=== PATIENT | female | born 1970 | race Caucasian/White ===

== ENCOUNTER 2020-11-11 10:56 | Inpatient (IN) ==
[2020-11-11] MEDS ORDERED: SODIUM CHLORIDE 0.9% 500 ML IV SCH (12:15)
--- NOTE | 2020-11-11 12:26 | Emergency Department Note ---
Impression & Plan Syncope, Anemia, Heart murmur, UTI (urinary tract infection) ED Provider Note NAME: MARIBEL KERN AGE: 50 SEX: F : 1970 ARRIVES VIA: Ambulance INFORMANT: [Patient][ems] ED PROVIDER(S): [Hamzah Perez MD] CHIEF COMPLAINT: Syncope HISTORY OF PRESENT ILLNESS: The patient is a 50-year-old female presents to the ER with a syncopal spell that occurred about an hour and a half ago. She was at work. She felt hot, the environment was hot. She began to sweat and get nauseated. She felt lightheaded. She had some bilateral lower chest pain that was mild in severity. No shortness of breath. She felt faint and apparently passed out while in a chair, she did not suffer any injuries. The patient states that she had a similar sensation 3 days ago at work although, she did not actually pass out. She ended up just going home and once home felt better. The patient states that she has been in baseline health except for these events at work. She did receive a Covid vaccine, her first dose, a week ago. She felt well though without any problems from the vaccination. In route, the patient was given IV Zofran 4 mg, she was given a 500 cc saline bolus. She feels back to her normal baseline self. The patient was recently at her doctor's office and told that she had a low iron level. REVIEW OF SYSTEMS: See HPI for pertinent positives and negatives. A total of ten systems were reviewed and were otherwise negative. PMHx/PSHx: See Below SOCIAL HISTORY: See Below. PHYSICAL EXAM: GENERAL: Patient is in no acute distress. HEENT: No acute trauma, normocephalic atraumatic, mucous membranes moist, no nasal congestion, no scleral icterus. NECK: No stridor, no adenopathy, no meningismus, trachea is midline. LUNGS: Clear to auscultation bilaterally, no wheeze, no rhonchi, breath sounds equal. HEART: 3/6 systolic murmur heard best at the left sternal border. ABDOMEN: Soft, nontender, bowel sounds positive, no hernias, no peritonitis. EXTREMITIES: No cyanosis or edema, full range of motion of all the joints without pain or difficulty, no signs for acute trauma. NEUROLOGIC: Oriented x 3, no acute motor or sensory deficits, no focal weakness. SKIN: No rash, no jaundice, no diaphoresis. Rectal: Brown stool, heme-negative. DIFFERENTIAL DIAGNOSIS: Infection, dehydration, metabolic abnormality, hypo/hyperglycemia, electrolyte disturbance, anemia, hypoxia, dysrhythmia, cardiac valve disorder, cardiac sources, intracerebral event, toxicologic issues, stroke, TIA, as well as other pathologies. EMERGENCY DEPARTMENT COURSE/PROCEDURES: ECG: Indication was syncope. The ECG shows a normal sinus rhythm with a somewhat prolonged QT. The rate is 96. There is some nonspecific ST change. There is no ST elevation, no PVCs. The QTc is 490. Continuous Cardiac Monitoring: An order was placed for continuous cardiac monitoring. The monitor shows a rate of 95 with normal sinus rhythm. Critical Care Note: I have personally spent 49 minutes of critical care time in the direct management of this patient. This includes bedside care, interpretation of diagnostic studies, and testing, discussion with consultants, patient, and family members, and other required patient management activities. This 49 minutes is in excess of all separately billable procedures. MEDICAL DECISION MAKING: There is a mild leukocytosis, this could be consistent with infection or just the stress of her current situation. There is a significant anemia with a hemoglobin of 6. I did perform a rectal exam, stool was brown and heme- negative. Platelet count was slightly elevated. Renal panel testing did not show renal failure. Magnesium was low at 1.7. The patient appeared to be in a euthyroid state. No worrisome liver enzyme elevation. Urinalysis was consistent with infection. Covid and influenza testing was negative. Chest film does not show pneumonia or CHF. ECG showed a sinus rhythm, no acute ischemia. Cardiac enzyme testing x1 was not consistent with acute cardiac injury. The patient was given IV saline, she received a 500 cc bolus. She was given IV magnesium and oral magnesium. She received IV ceftriaxone as empiric antibiotic coverage. She was ordered for 1 unit of blood to be transfused here in the ED. She did sign consent for the blood transfusion. The patient presents with syncope. She has a low magnesium, she is quite anemic, she has a UTI. I suspect all of these findings contributed to her syncopal event. I did contact cardiology because of the loud heart murmur. A cardiac echo was ordered. The patient is in need of a hospital stay. I spoke with case management, the on-call hospitalist was consulted. Past Med/Surg History Medical History Diabetes Iron deficiency anemia Myasthenia gravis sees Dr Cobos, [facility] [place] Nocturnal hypoxemia uses 3/4 L NC O2 at HS Surgical History (Updated 11/11/20 @ 15:05 by Enrique Davis) History of History of exploratory thoracotomy rib fracture, pneumothorax (2nd to a fall) History of lumbar surgery x 2 Family History (Updated 11/11/20 @ 15:07 by Enrique Davis) Father Parkinson disease Heart disease Diabetes Myocardial infarction Pacemaker Mother Diabetes Heart disease Denies family history of Gastric cancer Anemia Colorectal cancer Celiac disease Social History Smoking Status: Never smoker Hx Alcohol Use: Yes Alcohol Intake Frequency: Monthly or Less marital status: Current Living Situation: Family Current Living Situation Comment: lives near [employer] with ex- and son current occupational status: employed 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 How many Children do You have: 1 Feels Safe at Home: Yes Physical Activity Frequency: 1-2 Times per Week Allergies Allergies Allergy/AdvReac Type Severity Reaction Status Date / Time No Known Allergies Allergy Unverified 11/11/20 13:38 Home Meds Home Medications Medication Instructions Recorded Confirmed DIAMINOPYRIDINE (BULK) 10 mg PO TID #0 11/14/15 11/11/20 (DIAMINOPYRIDINE) ephedrine-guaifenesin 2 tab PO BID 11/11/20 11/11/20 ferrous sulfate 325 mg PO TID 11/11/20 11/11/20 glimepiride 4 mg PO QAM 11/11/20 11/11/20 metformin 500 mg PO BID 11/11/20 11/11/20 omeprazole 40 mg PO HS 11/11/20 11/11/20 prednisone 10 mg PO DIRECTED PRN 11/11/20 11/11/20 Results & Data (ED) Vital Signs Vital Signs - 24 hr 11/11/20 11:01 11/11/20 11:02 11/11/20 11:04 Temperature 36.9 C Temperature Source Oral Pulse Rate 95 H 94 H Pulse Rate from SpO2 Sensor 95 H Pulse Rhythm Regular Pulse Strength Normal Respiratory Rate 21 19 Respiratory Effort / Characteristics Non-Labored Respiratory Depth Normal Blood Pressure 128/69 128/69 Blood Pressure Mean 88 88 Blood Pressure Position Sitting Pulse Oximetry 91 91 Oxygen Delivery Method Room Air Room Air Oxygen Flow Rate Sepsis Recent Fever Within 48 Hours No Sepsis New/Unexplained Change in Mental Status No Sepsis Action Taken by Nursing No Action Required 11/11/20 11:08 11/11/20 11:10 11/11/20 11:11 Temperature Temperature Source Pulse Rate 96 H 96 H Pulse Rate from SpO2 Sensor 96 H 96 H Pulse Rhythm Pulse Strength Respiratory Rate 25 H 19 Respiratory Effort / Characteristics Respiratory Depth Blood Pressure Blood Pressure Mean Blood Pressure Position Pulse Oximetry 90 90 96 Oxygen Delivery Method Nasal Cannula Oxygen Flow Rate 2 Sepsis Recent Fever Within 48 Hours Sepsis New/Unexplained Change in Mental Status Sepsis Action Taken by Nursing 11/11/20 11:20 11/11/20 11:30 11/11/20 11:40 Temperature Temperature Source Pulse Rate 92 H 94 H 97 H Pulse Rate from SpO2 Sensor 93 H 94 H 97 H Pulse Rhythm Pulse Strength Respiratory Rate 18 17 17 Respiratory Effort / Characteristics Respiratory Depth Blood Pressure 119/66 Blood Pressure Mean 83 Blood Pressure Position Pulse Oximetry 100 100 100 Oxygen Delivery Method Oxygen Flow Rate Sepsis Recent Fever Within 48 Hours Sepsis New/Unexplained Change in Mental Status Sepsis Action Taken by Nursing 11/11/20 11:50 11/11/20 12:00 11/11/20 12:10 Temperature Temperature Source Pulse Rate 100 H 98 H 97 H Pulse Rate from SpO2 Sensor 97 H 98 H 99 H Pulse Rhythm Pulse Strength Respiratory Rate 13 21 18 Respiratory Effort / Characteristics Respiratory Depth Blood Pressure 113/73 Blood Pressure Mean 86 Blood Pressure Position Pulse Oximetry 100 100 100 Oxygen Delivery Method Oxygen Flow Rate Sepsis Recent Fever Within 48 Hours Sepsis New/Unexplained Change in Mental Status Sepsis Action Taken by Nursing 11/11/20 12:20 11/11/20 12:30 11/11/20 12:40 Temperature Temperature Source Pulse Rate 93 H 92 H 96 H Pulse Rate from SpO2 Sensor 94 H 93 H 96 H Pulse Rhythm Pulse Strength Respiratory Rate 21 20 16 Respiratory Effort / Characteristics Respiratory Depth Blood Pressure 121/79 Blood Pressure Mean 93 Blood Pressure Position Pulse Oximetry 100 100 100 Oxygen Delivery Method Oxygen Flow Rate Sepsis Recent Fever Within 48 Hours Sepsis New/Unexplained Change in Mental Status Sepsis Action Taken by Nursing 11/11/20 12:50 11/11/20 13:00 11/11/20 13:10 Temperature Temperature Source Pulse Rate 98 H 94 H 94 H Pulse Rate from SpO2 Sensor 97 H 94 H 94 H Pulse Rhythm Pulse Strength Respiratory Rate 23 24 17 Respiratory Effort / Characteristics Respiratory Depth Blood Pressure 124/68 Blood Pressure Mean 86 Blood Pressure Position Pulse Oximetry 100 100 100 Oxygen Delivery Method Oxygen Flow Rate Sepsis Recent Fever Within 48 Hours Sepsis New/Unexplained Change in Mental Status Sepsis Action Taken by Nursing 11/11/20 13:20 11/11/20 13:30 11/11/20 13:42 Temperature Temperature Source Pulse Rate 90 92 H 101 H Pulse Rate from SpO2 Sensor 91 H 92 H 101 H Pulse Rhythm Pulse Strength Respiratory Rate 19 20 12 Respiratory Effort / Characteristics Respiratory Depth Blood Pressure 137/82 Blood Pressure Mean 100 Blood Pressure Position Pulse Oximetry 100 100 97 Oxygen Delivery Method Oxygen Flow Rate Sepsis Recent Fever Within 48 Hours Sepsis New/Unexplained Change in Mental Status Sepsis Action Taken by Nursing 11/11/20 13:50 11/11/20 14:00 11/11/20 14:10 Temperature Temperature Source Pulse Rate 97 H 91 H 92 H Pulse Rate from SpO2 Sensor Pulse Rhythm Pulse Strength Respiratory Rate 23 19 22 Respiratory Effort / Characteristics Respiratory Depth Blood Pressure 158/70 H Blood Pressure Mean 99 Blood Pressure Position Pulse Oximetry Oxygen Delivery Method Oxygen Flow Rate Sepsis Recent Fever Within 48 Hours Sepsis New/Unexplained Change in Mental Status Sepsis Action Taken by Nursing 11/11/20 15:27 11/11/20 15:45 11/11/20 16:00 Temperature 36.6 C 36.7 C 36.7 C Temperature Source Oral Oral Oral Pulse Rate 89 87 86 Pulse Rate from SpO2 Sensor Pulse Rhythm Regular Regular Regular Pulse Strength Normal Normal Normal Respiratory Rate 21 20 15 Respiratory Effort / Characteristics Respiratory Depth Blood Pressure 130/98 129/89 128/80 Blood Pressure Mean 108 102 96 Blood Pressure Position Sitting Sitting Sitting Pulse Oximetry 100 100 100 Oxygen Delivery Method Oxygen Flow Rate 2 2 2 Sepsis Recent Fever Within 48 Hours Sepsis New/Unexplained Change in Mental Status Sepsis Action Taken by Nursing 11/11/20 16:16 11/11/20 16:30 11/11/20 17:30 Temperature 36.7 C 37 C 36.2 C L Temperature Source Oral Oral Oral Pulse Rate 86 90 82 Pulse Rate from SpO2 Sensor Pulse Rhythm Regular Regular Regular Pulse Strength Normal Normal Normal Respiratory Rate 15 20 16 Respiratory Effort / Characteristics Respiratory Depth Blood Pressure 129/74 128/85 139/89 Blood Pressure Mean 92 99 105 Blood Pressure Position Sitting Sitting Sitting Pulse Oximetry 100 100 100 Oxygen Delivery Method Oxygen Flow Rate 2 2 Sepsis Recent Fever Within 48 Hours Sepsis New/Unexplained Change in Mental Status Sepsis Action Taken by Alf Medications Current Medication List: was personally reviewed by me Laboratory Data Attestation: I reviewed the patient's lab results. Result diagrams: 11/11/20 11:09 11/11/20 11:09 Lab Results 11/11/20 11/11/20 11/11/20 Range/Units 11:09 11:09 11:09 WBC 12.12 H (4.8-10.8) K/uL RBC 4.03 L (4.2-5.4) M/uL Hgb 6.0 L* (12.0-16.0) g/dL Hct 24.1 L (37-47) % MCV 59.8 L (80-100) fL MCH 14.9 L (25-34) pg MCHC 24.9 L (32-36) g/dL Plt Count 403 H (130-400) K/uL Immature Gran % (Auto) 0.3 % Neut % (Auto) 72.7 % Lymph % (Auto) 18.5 % [place] % (Auto) 5.9 % Eos % (Auto) 2.2 % Baso % (Auto) 0.4 % Neut # (Auto) 8.81 H (1.4-6.5) K/uL Lymph # (Auto) 2.24 (1.2-3.4) K/uL [place] # (Auto) 0.71 H (0.11-0.59) K/uL Eos # (Auto) 0.27 (0-0.5) K/uL Baso # (Auto) 0.05 (0-0.2) K/uL Immature Gran # (Auto) 0.04 H (0.00-0.02) K/uL Microcytosis Present Ovalocytes 1+ Sodium 137 (136-145) mmol/L Potassium 3.6 (3.5-5.1) mmol/L Chloride 104 (98-107) mmol/L Carbon Dioxide 29 (21-32) mmol/L Anion Gap 4.0 (3-11) BUN 21 H (7-18) mg/dl Creatinine 1.19 (0.6-1.2) mg/dl Est Cr Clr Drug Dosing 74.0 ml/min Est GFR ( Amer) 61.6 Est GFR (Non-Af Amer) 53.2 BUN/Creatinine Ratio 17.7 (10-20) Glucose 246 H (70-99) mg/dl POC Glucose (70-99) mg/dl Calcium 8.7 (8.5-10.1) mg/dl Magnesium 1.7 L (1.8-2.4) mg/dl Iron 30 L (35-150) mcg/dl Transferrin 393 H (200-360) mg/dl Transferrin % Sat 5 L (15-50) % Ferritin 1.2 L (8-388) ng/ml Total Bilirubin 0.3 (0.2-1) mg/dl AST 10 L (15-37) U/L ALT 14 (12-78) U/L Alkaline Phosphatase 91 (45-117) U/L Troponin I < 0.015 (0-0.045) ng/ml Total Protein 8.7 H (6.4-8.2) gm/dl Albumin 3.3 L (3.4-5.0) gm/dl Globulin 5.4 H (2.5-4.0) gm/dl Albumin/Globulin Ratio 0.6 L (0.9-2) TSH 4.230 (0.300-4.500) uIu/ml Urine Color Urine Appearance (Clear) Urine pH (4.5-7.5) Ur Specific [place] (1.000-1.030) Urine Protein (Negative) Urine Glucose (UA) (Negative) Urine Ketones (Negative) Urine Blood (Negative) Urine Nitrite (Negative) Urine Bilirubin (Negative) Urine Urobilinogen (Negative) Ur Leukocyte Esterase (Negative) Urine WBC (Auto) (0-5) /hpf Urine RBC (Auto) (0-4) /hpf U Hyaline Cast (Auto) (0-5) /lpf U Epithel Cells (Auto) (0-5) /lpf Urine Bacteria (Auto) (Negative) COVID-19 Eval Order SARS-CoV-2 (PCR) (Negative) Influenza Type A (PCR) (Neg) Influenza Type B (PCR) (Neg) RSV (RT-PCR) (Neg) Blood Type Blood Type Recheck Antibody Screen Crossmatch 04/08/21 04/08/21 04/08/21 Range/Units 11:11 13:35 13:48 WBC (4.8-10.8) K/uL RBC (4.2-5.4) M/uL Hgb (12.0-16.0) g/dL Hct (37-47) % MCV (80-100) fL MCH (25-34) pg MCHC (32-36) g/dL Plt Count (130-400) K/uL Immature Gran % (Auto) % Neut % (Auto) % Lymph % (Auto) % [place] % (Auto) % Eos % (Auto) % Baso % (Auto) % Neut # (Auto) (1.4-6.5) K/uL Lymph # (Auto) (1.2-3.4) K/uL [place] # (Auto) (0.11-0.59) K/uL Eos # (Auto) (0-0.5) K/uL Baso # (Auto) (0-0.2) K/uL Immature Gran # (Auto) (0.00-0.02) K/uL Microcytosis Ovalocytes Sodium (136-145) mmol/L Potassium (3.5-5.1) mmol/L Chloride (98-107) mmol/L Carbon Dioxide (21-32) mmol/L Anion Gap (3-11) BUN (7-18) mg/dl Creatinine (0.6-1.2) mg/dl Est Cr Clr Drug Dosing ml/min Est GFR ( Amer) Est GFR (Non-Af Amer) BUN/Creatinine Ratio (10-20) Glucose (70-99) mg/dl POC Glucose 276 H (70-99) mg/dl Calcium (8.5-10.1) mg/dl Magnesium (1.8-2.4) mg/dl Iron (35-150) mcg/dl Transferrin (200-360) mg/dl Transferrin % Sat (15-50) % Ferritin (8-388) ng/ml Total Bilirubin (0.2-1) mg/dl AST (15-37) U/L ALT (12-78) U/L Alkaline Phosphatase (45-117) U/L Troponin I (0-0.045) ng/ml Total Protein (6.4-8.2) gm/dl Albumin (3.4-5.0) gm/dl Globulin (2.5-4.0) gm/dl Albumin/Globulin Ratio (0.9-2) TSH (0.300-4.500) uIu/ml Urine Color Yellow Urine Appearance Cloudy A (Clear) Urine pH 5.0 (4.5-7.5) Ur Specific [place] 1.021 (1.000-1.030) Urine Protein 1+ H (Negative) Urine Glucose (UA) Trace H (Negative) Urine Ketones Negative (Negative) Urine Blood Trace H (Negative) Urine Nitrite Positive A (Negative) Urine Bilirubin Negative (Negative) Urine Urobilinogen Negative (Negative) Ur Leukocyte Esterase 1+ H (Negative) Urine WBC (Auto) >30 H (0-5) /hpf Urine RBC (Auto) 0-4 (0-4) /hpf U Hyaline Cast (Auto) 10-30 H (0-5) /lpf U Epithel Cells (Auto) 10-20 H (0-5) /lpf Urine Bacteria (Auto) 4+ H (Negative) COVID-19 Eval Order SARS-CoV-2 (PCR) (Negative) Influenza Type A (PCR) (Neg) Influenza Type B (PCR) (Neg) RSV (RT-PCR) (Neg) Blood Type O Positive Blood Type Recheck Antibody Screen NEGATIVE Crossmatch See Detail 11/11/20 11/11/20 11/11/20 Range/Units 14:20 15:35 15:35 WBC (4.8-10.8) K/uL RBC (4.2-5.4) M/uL Hgb (12.0-16.0) g/dL Hct (37-47) % MCV (80-100) fL MCH (25-34) pg MCHC (32-36) g/dL Plt Count (130-400) K/uL Immature Gran % (Auto) % Neut % (Auto) % Lymph % (Auto) % [place] % (Auto) % Eos % (Auto) % Baso % (Auto) % Neut # (Auto) (1.4-6.5) K/uL Lymph # (Auto) (1.2-3.4) K/uL [place] # (Auto) (0.11-0.59) K/uL Eos # (Auto) (0-0.5) K/uL Baso # (Auto) (0-0.2) K/uL Immature Gran # (Auto) (0.00-0.02) K/uL Microcytosis Ovalocytes Sodium (136-145) mmol/L Potassium (3.5-5.1) mmol/L Chloride (98-107) mmol/L Carbon Dioxide (21-32) mmol/L Anion Gap (3-11) BUN (7-18) mg/dl Creatinine (0.6-1.2) mg/dl Est Cr Clr Drug Dosing ml/min Est GFR ( Amer) Est GFR (Non-Af Amer) BUN/Creatinine Ratio (10-20) Glucose (70-99) mg/dl POC Glucose (70-99) mg/dl Calcium (8.5-10.1) mg/dl Magnesium (1.8-2.4) mg/dl Iron (35-150) mcg/dl Transferrin (200-360) mg/dl Transferrin % Sat (15-50) % Ferritin (8-388) ng/ml Total Bilirubin (0.2-1) mg/dl AST (15-37) U/L ALT (12-78) U/L Alkaline Phosphatase (45-117) U/L Troponin I (0-0.045) ng/ml Total Protein (6.4-8.2) gm/dl Albumin (3.4-5.0) gm/dl Globulin (2.5-4.0) gm/dl Albumin/Globulin Ratio (0.9-2) TSH (0.300-4.500) uIu/ml Urine Color Urine Appearance (Clear) Urine pH (4.5-7.5) Ur Specific [place] (1.000-1.030) Urine Protein (Negative) Urine Glucose (UA) (Negative) Urine Ketones (Negative) Urine Blood (Negative) Urine Nitrite (Negative) Urine Bilirubin (Negative) Urine Urobilinogen (Negative) Ur Leukocyte Esterase (Negative) Urine WBC (Auto) (0-5) /hpf Urine RBC (Auto) (0-4) /hpf U Hyaline Cast (Auto) (0-5) /lpf U Epithel Cells (Auto) (0-5) /lpf Urine Bacteria (Auto) (Negative) COVID-19 Eval Order [facility]Rsv at [facility] SARS-CoV-2 (PCR) NEGATIVE (Negative) Influenza Type A (PCR) Negative (Neg) Influenza Type B (PCR) Negative (Neg) RSV (RT-PCR) Negative (Neg) Blood Type Blood Type Recheck O Positive Antibody Screen Crossmatch Administered Medications Discontinued Medications Sodium Chloride (Nss) 500 mls @ 999 mls/hr IV .[id number] Stop: 11/11/20 12:45 Last Infusion: 11/11/20 17:31 Dose: 0 mls/hr Documented by: [id number] Admin: 11/11/20 12:19 Dose: 999 mls/hr Documented by: [id number] Magnesium Sulfate/Dextrose (Magnesium Sulfate / D5w) 1 gm in 100 mls @ 100 mls/hr IV NOW STA Stop: 11/11/20 13:38 Last Infusion: 11/11/20 14:34 Dose: 100 mls/hr Documented by: [id number] Admin: 11/11/20 13:23 Dose: 100 mls/hr Documented by: [id number] Ceftriaxone Sodium (Rocephin) 2,000 mg in 70 mls @ 140 mls/hr IV NOW STA Stop: 11/11/20 14:46 Last Infusion: 11/11/20 17:30 Dose: 0 mls/hr Documented by: [id number] Admin: 11/11/20 14:34 Dose: 140 mls/hr Documented by: [id number] Magnesium Oxide (Magnesium Oxide 400 Mg Tab) 400 mg PO NOW STA Stop: 11/11/20 12:40 Last Admin: 11/11/20 13:22 Dose: 400 mg Documented by: [id number] Imaging Data Radiologist's Impression: Chest X-Ray 11/11/20 12:15 XR chest 1V portable HISTORY: 50 years-old Female weakness acute weakness COMPARISON: Chest radiograph 11/14/2015 TECHNIQUE: Portable AP view of the chest FINDINGS: Cardiac silhouette is enlarged. Lungs are mildly hypoinflated with bronchovascular crowding. Linear subsegmental bibasilar densities with blunting of the costophrenic angles. No pneumothorax or large pleural effusion. Degenerative changes of the shoulders and spine. IMPRESSION: 1. Cardiomegaly with hypoinflation. 2. Linear bibasilar opacities suggest probable atelectasis. ACT 112: Negative or not required by law. The above report was generated using voice recognition software. It may contain grammatical, syntax or spelling errors. Electronically signed by: Jose aMnuel Almendarez M.D. 11/11/2020 2:03 PM Discharge Plan Visit Data Chief Complaint: Syncope ED Provider: Hamzah Perez Discharge Problem: Syncope, Anemia, Heart murmur, UTI (urinary tract infection) Patient Disposition: Admitted As Inpatient Condition: Fair Forms Stand Alone Forms: [facility], [facility] Prescriptions Prescriptions: No Action DIAMINOPYRIDINE (BULK) (DIAMINOPYRIDINE) 1 POW POW 10 mg PO TID Qty: 0 RF: 0 metformin 500 mg tablet 500 mg PO BID RF: 0 prednisone 5 mg tablet 10 mg PO DIRECTED PRN (Reason: Unknown) RF: 0 omeprazole 40 mg Capsule,Delayed Release(Dr/Ec) 40 mg PO HS RF: 0 glimepiride 2 mg tablet 4 mg PO QAM RF: 0 ferrous sulfate 325 mg (65 mg iron) tablet 325 mg PO TID RF: 0 ephedrine-guaifenesin 12.5-200 mg Tablet 2 tab PO BID RF: 0 Referrals Referrals: Sidney Whitlock [Primary Care Provider] - Discharge Problem: Syncope Qualifiers: Syncope type: unspecified Qualified Code(s): R55 - Syncope and collapse Anemia Qualifiers: Anemia type: unspecified type Qualified Code(s): D64.9 - Anemia, unspecified UTI (urinary tract infection) Qualifiers: Urinary tract infection type: acute cystitis Hematuria presence: without hematuria Qualified Code(s): N30.00 - Acute cystitis without hematuria
[2020-11-11 12:36] LABS: Alanine Aminotransferase 14 U/L (12-78); Albumin Level 3.3 gm/dl (3.4-5.0); Aspartate Aminotransferase 10 U/L (15-37); BUN Creatinine Ratio 17.7 (10-20); Blood Urea Nitrogen 21 mg/dl (7-18); Calcium 8.7 mg/dl (8.5-10.1); Carbon Dioxide 29 mmol/L (21-32); Chloride 104 mmol/L (98-107); Est GFR (African American) 61.6; Est GFR (Non-African American) 53.2; Glucose 246 mg/dl (70-99); Magnesium 1.7 mg/dl (1.8-2.4); Potassium 3.6 mmol/L (3.5-5.1); Sodium 137 mmol/L (136-145)
[2020-11-11] MEDS ORDERED: MAGNESIUM SULFATE / D5W 1 GM/100 ML BAG IV STA (12:39)
[2020-11-11] MEDS ORDERED: MAGNESIUM OXIDE 400 MG TAB PO STA (12:39)
[2020-11-11 12:57] LABS: Albumin Globulin Ratio 0.6 (0.9-2); Alkaline Phosphatase 91 U/L (45-117); Bilirubin,Total 0.3 mg/dl (0.2-1); Globulin 5.4 gm/dl (2.5-4.0); Total Protein 8.7 gm/dl (6.4-8.2); Troponin I < 0.015 ng/ml (0-0.045)
[2020-11-11 13:36] LABS: Hematocrit (blood only) 24.1 % (37-47); Mean Corpuscular Hemoglobin 14.9 pg (25-34); Mean Corpuscular Hgb Conc 24.9 g/dL (32-36); Mean Corpuscular Volume 59.8 fL (80-100); Platelet Count 403 K/uL (130-400); Red Blood Count 4.03 M/uL (4.2-5.4); White Blood Count 12.12 K/uL (4.8-10.8)
[2020-11-11 13:40] LABS: Basophils # (auto) 0.05 K/uL (0-0.2); Basophils % (auto) 0.4 %; Eosinophils # (auto) 0.27 K/uL (0-0.5); Eosinophils % (auto) 2.2 %; Immature Granulocytes # (auto) 0.04 K/uL (0.00-0.02); Immature Granulocytes % (auto) 0.3 %; Lymphocytes # (auto) 2.24 K/uL (1.2-3.4); Lymphocytes % (auto) 18.5 %; Microcytosis Present; Monocytes # (auto) 0.71 K/uL (0.11-0.59); Monocytes % (auto) 5.9 %; Neutrophils # (auto) 8.81 K/uL (1.4-6.5); Neutrophils % (auto) 72.7 %; Ovalocytes 1+
[2020-11-11] MEDS ORDERED: SODIUM CHLORIDE 0.9% 250 ML IV PRN ×2 (13:42→21:45)
[2020-11-11 13:59] LABS: Appearance Urine Cloudy (Clear); Bacteria Urine Automated 4+ (Negative); Bilirubin Urine Negative (Negative); Blood Urine Trace (Negative); Color Urine Yellow; Glucose Urine UA Trace (Negative); Ketones Urine Negative (Negative); Leukocyte Esterase Urine 1+ (Negative); Nitrite Urine Positive (Negative); Protein Urine 1+ (Negative); RBC Urine Automated 0-4 /hpf (0-4); Specific Gravity Urine 1.021 (1.000-1.030); Urobilinogen Urine Negative (Negative); WBC Urine Automated >30 /hpf (0-5)
--- NOTE | 2020-11-11 14:05 | XRay Report ---
XR chest 1V portable HISTORY: 50 years-old Female weakness acute weakness COMPARISON: Chest radiograph 11/14/2015 TECHNIQUE: Portable AP view of the chest FINDINGS: Cardiac silhouette is enlarged. Lungs are mildly hypoinflated with bronchovascular crowding. Linear s ubsegmental bibasilar densities with blunting of the costophrenic angles. No pneumothorax or large pl eural effusion. Degenerative changes of the shoulders and spine. IMPRESSION: 1. Cardiomegaly with hypoinflation. 2. Linear bibasilar opacities suggest probable atelectasis. ACT 112: Negative or not required by law. The above report was generated using voice recognition software. It may contain grammatical, syntax o r spelling errors. Electronically signed by: Jose Manuel Almendarez M.D. 11/11/2020 2:03 PM
[2020-11-11] MEDS ORDERED: cefTRIAXone SODIUM 2,000 MG/70 ML BAG IV STA (14:17)
--- NOTE | 2020-11-11 14:48 | History & Physical Report ---
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 Echo wnl. EKG wnl. Telemetry thus far wnl. Place on telemetry. Transfuse 2 units PRBCs. Treat UTI. (2) Iron deficiency anemia: Severe. Ferritin 1. MCV 59. Long-standing history of such. Records reviewed - patient had EGD at [facility] in 2014 showing mild gastritis only. She reports having had a colonoscopy at the same time but there is no record of such. Stool in the ER tonight is HEME NEGATIVE. Patient is luc-menopausal and for the last several years has had SEVERE menorrhagia/DUB. Her career coach had advised hysterectomy because of this problem but patient declined. It is possible she has had long-standing Fe deficiency because of the severe, heavy menstrual cycles. Transfuse 2 units PRBCs. Recheck H/H following her 2nd unit. Venofer 200mg IV x 1 tomorrow am. To be complete check b12/folate in am. Given her age - despite the heme negative stool - would still advise an EGD with colonoscopy. (3) GERD (gastroesophageal reflux disease): PPI as previous (4) Dysfunctional uterine bleeding: Present for several years. She has not had a menstrual cycle in 2-3 months, however, and may have finally reached menopause. Suspect that much of her severe Fe deficiency is from previous menorrhagia. If menopause has been reached this will certainly help her Fe deficiency. Just to be on safe side will check serum HCG. (5) UTI (urinary tract infection): Possible. s/p rocephin in ER. Will start keflex 500mg BID in am, and follow urine culture. (6) Nocturnal hypoxemia: NC O2 3 L. due to RAMONA? (7) Diabetes: Hold oral agents. Start novolog correction/carb coverage. (8) Myasthenia gravis: Controlled. Follows with [facility]. Continue chronic meds. (9) High globulin level: Total protein & globulin levels are elevated. Repeat LFTs in am. If these remain persistently high then consider SPEP/UPEP. (10) Hypomagnesemia: Replace, repeat level am. History of Present Illness Chief Complaint: "I passed out" Primary Care Provider: Sidney Whitlock 50yo female with h/o T2DM and anemia who presents after having had syncope at work today. Her history, however, goes back to Sunday of this week. At that time - while also at work - she felt dizzy and lightheaded. She did not have actual syncope. Went home Sunday evening from work and had vomiting/diarrhea. Sunday all symptoms were better. Saw her PCP on Sunday, had blood work showing anemia, and was told she needed blood transfusion. They were going to schedule it for Sunday at [facility]. She has had at least 3 transfusions in the past with last being about 1 year ago. Today while at her job in [place] she actually passed out. She was sitting in a chair, felt sweaty, lightheaded, and then proceeded to pass out. EMS was summoned and she was brought to [facility]. Upon presentation here her hemoglobin was noted to be 6. With respect to the anemia - * was told she was low on iron and took iron starting ~ 1 year ago * had colonoscopy and EGD ~5 years ago at [facility] (or [facility]?) - "they were normal" * no blood or melena in stool * craves ice "constantly" * no restless legs * no h/o b12 or folate deficiency * no family history of any form of anemia Allergies Allergy/AdvReac Type Severity Reaction Status Date / Time No Known Allergies Allergy Unverified 11/11/20 13:38 Home Medications Medication Instructions Recorded Confirmed Type DIAMINOPYRIDINE (BULK) 10 mg PO TID #0 11/14/15 11/11/20 History (DIAMINOPYRIDINE) ephedrine-guaifenesin 2 tab PO BID 11/11/20 11/11/20 History ferrous sulfate 325 mg PO TID 11/11/20 11/11/20 History glimepiride 4 mg PO QAM 11/11/20 11/11/20 History metformin 500 mg PO BID 11/11/20 11/11/20 History omeprazole 40 mg PO HS 11/11/20 11/11/20 History prednisone 10 mg PO DIRECTED PRN 11/11/20 11/11/20 History Past Med/Surg History Medical History (Updated 11/11/20 @ 22:01 by Enrique Davis) Diabetes Dysfunctional uterine bleeding GERD (gastroesophageal reflux disease) Iron deficiency anemia Myasthenia gravis sees Dr Cobos, [facility] [place] Nocturnal hypoxemia uses 3-4 L NC O2 at HS Surgical History (Updated 11/11/20 @ 15:05 by Enrique Davis) History of History of exploratory thoracotomy rib fracture, pneumothorax (2nd to a fall) History of lumbar surgery x 2 Family History (Updated 11/11/20 @ 15:07 by Enrique Davis) Father Parkinson disease Heart disease Diabetes Myocardial infarction Pacemaker Mother Diabetes Heart disease Denies family history of Gastric cancer Anemia Colorectal cancer Celiac disease Social History Smoking Status: Never smoker Hx Alcohol Use: No Hx Substance Use: No Beliefs That Will Affect Care: None marital status: Current Living Situation: Family Current Living Situation Comment: lives near [place] with ex- and son current occupational status: employed 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 How many Children do You have: 1 Feels Safe at Home: Yes Safety Concerns: Feels Safe At This Time Physical Activity Frequency: 1-2 Times per Week Review of Systems Constitutional: + fatigue; no fever, no chills, no anorexia and no weight loss Eyes: no worsening vision Ear, Nose, Mouth, Throat: no nasal congestion, no sore throat and no dysphagia no loss of taste or smell Respiratory: no cough, no dyspnea and no dyspnea on exertion Cardiovascular: + lightheadedness and + syncope; no chest pain and no edema Gastrointestinal: + diarrhea/loose stools (Sunday only (started after her near-syncope); also had emesis - none since); no abdominal pain, no nausea, no vomiting, no blood in stools and no melena Genitourinary: no dysuria, no difficulty urinating and no urinary frequency menopause - current; LMP - 2 months ago. Periods were heavy, lasted 7 days, numerous pads/tampons per day. Hysterectomy was advised because of menorrhagia for several years. Musculoskeletal: no back pain, no neck pain and no joint pain Integumentary: no rash Neurologic: + syncope; no loss of sensation, no tingling and no headache(s) Psychiatric: no depression and no anxiety Endocrine: + cold intolerance and + heat intolerance diabetes - BSGs <150 Hematologic / Lymphatic: no easy bleeding and no easy bruising Allergy / Immunological: no seasonal rhinorrhea Physical Exam Constitutional: + obese; no acute distress and no altered mental status Eyes: + anicteric sclerae and PERRL ENMT: external ear and nose normal, oropharynx normal Neck: trachea midline, no thyromegaly Respiratory: normal respiratory effort, lungs clear to auscultation Cardiovascular: Rate/Rhythm: regular rate and regular rhythm Heart Sounds: normal S1, normal S2 and + murmur (2/6 CAMI LSB) Vessels: posterior tibial pulses present and dorsalis pedis pulses present; no JVD Extremities: no edema Gastrointestinal (Abdomen): normal bowel sounds, soft, nontender, no hepatosplenomegaly Musculoskeletal: no cyanosis or clubbing, extremities motor strength 5/5 Skin: + pallor; no rashes Neurologic: deep tendon reflexes 2+ bilaterally and moves all extremities Psychiatric: A+Ox3, euthymic affect Lymphatic: no cervical lymphadenopathy Results & Data Results & Data ([facility]) Vital Signs (Past 12 Hours) Vital Signs Temp Pulse Resp BP Pulse Ox 11/11/20 14:10 92 H 22 11/11/20 14:00 91 H 19 158/70 H 11/11/20 13:50 97 H 23 11/11/20 13:42 101 H 12 97 11/11/20 13:30 92 H 20 137/82 100 11/11/20 13:20 90 19 100 11/11/20 13:10 94 H 17 100 11/11/20 13:00 94 H 24 124/68 100 11/11/20 12:50 98 H 23 100 11/11/20 12:40 96 H 16 100 11/11/20 12:30 92 H 20 121/79 100 11/11/20 12:20 93 H 21 100 11/11/20 12:10 97 H 18 100 11/11/20 12:00 98 H 21 113/73 100 11/11/20 11:50 100 H 13 100 11/11/20 11:40 97 H 17 100 11/11/20 11:30 94 H 17 119/66 100 11/11/20 11:20 92 H 18 100 11/11/20 11:11 96 11/11/20 11:10 96 H 19 90 11/11/20 11:08 96 H 25 H 90 11/11/20 11:04 94 H 19 128/69 91 11/11/20 11:01 36.9 C 95 H 21 128/69 91 Laboratory Results Laboratory Results - last 24 hr 11/11/20 11/11/20 11/11/20 11:09 11:09 11:09 WBC 12.12 H RBC 4.03 L Hgb 6.0 L* Hct 24.1 L MCV 59.8 L MCH 14.9 L MCHC 24.9 L Plt Count 403 H Immature Gran % (Auto) 0.3 Neut % (Auto) 72.7 Lymph % (Auto) 18.5 [place] % (Auto) 5.9 Eos % (Auto) 2.2 Baso % (Auto) 0.4 Neut # (Auto) 8.81 H Lymph # (Auto) 2.24 [place] # (Auto) 0.71 H Eos # (Auto) 0.27 Baso # (Auto) 0.05 Immature Gran # (Auto) 0.04 H Microcytosis Present Ovalocytes 1+ Sodium 137 Potassium 3.6 Chloride 104 Carbon Dioxide 29 Anion Gap 4.0 BUN 21 H Creatinine 1.19 Est Cr Clr Drug Dosing 74.0 Est GFR ( Amer) 61.6 Est GFR (Non-Af Amer) 53.2 BUN/Creatinine Ratio 17.7 Glucose 246 H POC Glucose Calcium 8.7 Magnesium 1.7 L Iron 30 L Transferrin 393 H Transferrin % Sat 5 L Ferritin 1.2 L Total Bilirubin 0.3 AST 10 L ALT 14 Alkaline Phosphatase 91 Troponin I < 0.015 Total Protein 8.7 H Albumin 3.3 L Globulin 5.4 H Albumin/Globulin Ratio 0.6 L TSH 4.230 Urine Color Urine Appearance Urine pH Ur Specific [place] Urine Protein Urine Glucose (UA) Urine Ketones Urine Blood Urine Nitrite Urine Bilirubin Urine Urobilinogen Ur Leukocyte Esterase Urine WBC (Auto) Urine RBC (Auto) U Hyaline Cast (Auto) U Epithel Cells (Auto) Urine Bacteria (Auto) COVID-19 Eval Order SARS-CoV-2 (PCR) Influenza Type A (PCR) Influenza Type B (PCR) RSV (RT-PCR) Blood Type Blood Type Recheck Antibody Screen Crossmatch 11/11/20 11/11/20 11/11/20 11:11 13:35 13:48 WBC RBC Hgb Hct MCV MCH MCHC Plt Count Immature Gran % (Auto) Neut % (Auto) Lymph % (Auto) [place] % (Auto) Eos % (Auto) Baso % (Auto) Neut # (Auto) Lymph # (Auto) [place] # (Auto) Eos # (Auto) Baso # (Auto) Immature Gran # (Auto) Microcytosis Ovalocytes Sodium Potassium Chloride Carbon Dioxide Anion Gap BUN Creatinine Est Cr Clr Drug Dosing Est GFR ( Amer) Est GFR (Non-Af Amer) BUN/Creatinine Ratio Glucose POC Glucose 276 H Calcium Magnesium Iron Transferrin Transferrin % Sat Ferritin Total Bilirubin AST ALT Alkaline Phosphatase Troponin I Total Protein Albumin Globulin Albumin/Globulin Ratio TSH Urine Color Yellow Urine Appearance Cloudy A Urine pH 5.0 Ur Specific [place] 1.021 Urine Protein 1+ H Urine Glucose (UA) Trace H Urine Ketones Negative Urine Blood Trace H Urine Nitrite Positive A Urine Bilirubin Negative Urine Urobilinogen Negative Ur Leukocyte Esterase 1+ H Urine WBC (Auto) >30 H Urine RBC (Auto) 0-4 U Hyaline Cast (Auto) 10-30 H U Epithel Cells (Auto) 10-20 H Urine Bacteria (Auto) 4+ H COVID-19 Eval Order SARS-CoV-2 (PCR) Influenza Type A (PCR) Influenza Type B (PCR) RSV (RT-PCR) Blood Type O Positive Blood Type Recheck Antibody Screen NEGATIVE Crossmatch See Detail 11/11/20 11/11/20 11/11/20 14:20 15:35 15:35 WBC RBC Hgb Hct MCV MCH MCHC Plt Count Immature Gran % (Auto) Neut % (Auto) Lymph % (Auto) [place] % (Auto) Eos % (Auto) Baso % (Auto) Neut # (Auto) Lymph # (Auto) [place] # (Auto) Eos # (Auto) Baso # (Auto) Immature Gran # (Auto) Microcytosis Ovalocytes Sodium Potassium Chloride Carbon Dioxide Anion Gap BUN Creatinine Est Cr Clr Drug Dosing Est GFR ( Amer) Est GFR (Non-Af Amer) BUN/Creatinine Ratio Glucose POC Glucose Calcium Magnesium Iron Transferrin Transferrin % Sat Ferritin Total Bilirubin AST ALT Alkaline Phosphatase Troponin I Total Protein Albumin Globulin Albumin/Globulin Ratio TSH Urine Color Urine Appearance Urine pH Ur Specific [place] Urine Protein Urine Glucose (UA) Urine Ketones Urine Blood Urine Nitrite Urine Bilirubin Urine Urobilinogen Ur Leukocyte Esterase Urine WBC (Auto) Urine RBC (Auto) U Hyaline Cast (Auto) U Epithel Cells (Auto) Urine Bacteria (Auto) COVID-19 Eval Order CovFluRsv at [facility] SARS-CoV-2 (PCR) NEGATIVE Influenza Type A (PCR) Negative Influenza Type B (PCR) Negative RSV (RT-PCR) Negative Blood Type Blood Type Recheck O Positive Antibody Screen Crossmatch 11/11/20 21:20 WBC RBC Hgb Hct MCV MCH MCHC Plt Count Immature Gran % (Auto) Neut % (Auto) Lymph % (Auto) [place] % (Auto) Eos % (Auto) Baso % (Auto) Neut # (Auto) Lymph # (Auto) [place] # (Auto) Eos # (Auto) Baso # (Auto) Immature Gran # (Auto) Microcytosis Ovalocytes Sodium Potassium Chloride Carbon Dioxide Anion Gap BUN Creatinine Est Cr Clr Drug Dosing Est GFR ( Amer) Est GFR (Non-Af Amer) BUN/Creatinine Ratio Glucose POC Glucose 251 H Calcium Magnesium Iron Transferrin Transferrin % Sat Ferritin Total Bilirubin AST ALT Alkaline Phosphatase Troponin I Total Protein Albumin Globulin Albumin/Globulin Ratio TSH Urine Color Urine Appearance Urine pH Ur Specific [place] Urine Protein Urine Glucose (UA) Urine Ketones Urine Blood Urine Nitrite Urine Bilirubin Urine Urobilinogen Ur Leukocyte Esterase Urine WBC (Auto) Urine RBC (Auto) U Hyaline Cast (Auto) U Epithel Cells (Auto) Urine Bacteria (Auto) COVID-19 Eval Order SARS-CoV-2 (PCR) Influenza Type A (PCR) Influenza Type B (PCR) RSV (RT-PCR) Blood Type Blood Type Recheck Antibody Screen Crossmatch Diagnostic Findings Chest X-Ray 11/11/20 12:15 XR chest 1V portable HISTORY: 50 years-old Female weakness acute weakness COMPARISON: Chest radiograph 11/14/2015 TECHNIQUE: Portable AP view of the chest FINDINGS: Cardiac silhouette is enlarged. Lungs are mildly hypoinflated with bronchovascular crowding. Linear subsegmental bibasilar densities with blunting of the costophrenic angles. No pneumothorax or large pleural effusion. Degenerative changes of the shoulders and spine. IMPRESSION: 1. Cardiomegaly with hypoinflation. 2. Linear bibasilar opacities suggest probable atelectasis. ACT 112: Negative or not required by law. The above report was generated using voice recognition software. It may contain grammatical, syntax or spelling errors. Electronically signed by: Jose Manuel Almendarez M.D. 11/11/2020 2:03 PM Ekg - NSR, no ST changes Echo - EF preserved, normal valve function Code Status & VTE Plan Code Status full VTE Prophylaxis Plan VTE Prophylaxis will be ordered: No PG Care Time/CCT Total # of Minutes Spent Total Time Spent with Patient: Total time spent is greater than 50% in coordination of care (as documented) at patient's floor/unit and/or counseling patient: Coding Level of Care Code 56387 Initial Inpt Care Lvl 3 Diagnoses Syncope R55 Syncope type: unspecified Iron deficiency anemia D50.9 Iron deficiency anemia type: unspecified iron deficiency GERD (gastroesophageal reflux disease) K21.9 Esophagitis presence: without esophagitis Dysfunctional uterine bleeding N93.8 UTI (urinary tract infection) N30.00 Hematuria presence: without hematuria Urinary tract infection type: acute cystitis Nocturnal hypoxemia G47.34 Diabetes E11.9 Diabetes mellitus type: type 2 Diabetes mellitus intermediate insulin use: without terminal manager use Diabetes mellitus complication status: without complication Myasthenia gravis G70.00 High globulin level R77.1 Hypomagnesemia E83.42 (1) Iron deficiency anemia Iron deficiency anemia type: unspecified iron deficiency Qualified Code(s): D50.9 - Iron deficiency anemia, unspecified (2) GERD (gastroesophageal reflux disease) Esophagitis presence: without esophagitis Qualified Code(s): K21.9 - Gastro- esophageal reflux disease without esophagitis (3) Syncope Syncope type: unspecified Qualified Code(s): R55 - Syncope and collapse (4) UTI (urinary tract infection) Hematuria presence: without hematuria Urinary tract infection type: acute cystitis Qualified Code(s): N30.00 - Acute cystitis without hematuria (5) Diabetes Diabetes mellitus type: type 2 Diabetes mellitus terminal manager insulin use: without intermediate use Diabetes mellitus complication status: without complication Qualified Code(s): E11.9 - Type 2 diabetes mellitus without complications
--- NOTE | 2020-11-11 15:27 | XCELERA ---
[id number]
[2020-11-11 15:45] LABS: Ferritin 1.2 ng/ml (8-388)
--- NOTE | 2020-11-11 16:00 | Electrocardiogram Report ---
Test Reason : Blood Pressure : / mmHG Vent. Rate : 096 BPM Atrial Rate : 096 BPM P-R Int : 160 ms QRS Dur : 086 ms QT Int : 360 ms P-R-T Axes : 053 -08 030 degrees QTc Int : 455 ms Normal sinus rhythm Normal ECG When compared with ECG of 14-NOV-2015 06:53, Criteria for Anteroseptal infarct are no longer Present T wave inversion no longer evident in Lateral leads Confirmed by Armani Buchanan ([id number]) on 11/11/2020 3:59:57 PM Referred By: Confirmed By:Armani Buchanan
[2020-11-11 16:42] LABS: Influenza A virus by PCR Negative (Neg); Influenza B virus by PCR Negative (Neg); RSV by PCR Negative (Neg); SARS CoV2 RNA(COVID-19) InHosp NEGATIVE (Negative)
[2020-11-11] MEDS ORDERED: ONDANSETRON INJ 2 MG/ML 2 ML VIAL IV PRN (18:47)
[2020-11-11] MEDS ORDERED: ACETAMINOPHEN 325 MG TAB PO PRN (18:47)
[2020-11-11] MEDS ORDERED: IRON SUCROSE 200 MG in 0.9 % SODIUM CHLORIDE 100 ML IV ONE (20:00)
[2020-11-11] MEDS: INSULIN ASPART 100 UNITS/ML 3 ML PEN SC SCH ×2 (21:25→21:35)
[2020-11-11] MEDS: guaiFENesin 200 MG TAB PO SCH (21:27)
[2020-11-12 06:52] LABS: Hematocrit (blood only) 26.7 % (37-47); Hemoglobin 7.1 g/dL (12.0-16.0); Mean Corpuscular Hemoglobin 17.7 pg (25-34); Mean Corpuscular Hgb Conc 26.6 g/dL (32-36); Mean Corpuscular Volume 66.4 fL (80-100); Nucleated RBC # (auto) 0.02 K/uL (0-0); Nucleated RBC % (auto) 0.2 %; Platelet Count 328 K/uL (130-400); RDW Coefficient of Variation 26.2 % (11.5-14.5); RDW Standard Deviation 62.7 fL (36.4-46.3); Red Blood Count 4.02 M/uL (4.2-5.4); White Blood Count 11.12 K/uL (4.8-10.8)
[2020-11-12 06:58] LABS: Pregnancy Test, Serum Negative (Negative)
[2020-11-12 07:02] LABS: Albumin Level 3.1 gm/dl (3.4-5.0); BUN Creatinine Ratio 17.8 (10-20); Calcium 8.5 mg/dl (8.5-10.1); Creatinine Clr Calc Pharmacy 95.6 ml/min; Est GFR (African American) 84.1; Est GFR (Non-African American) 72.6; Magnesium 1.9 mg/dl (1.8-2.4); Potassium 3.8 mmol/L (3.5-5.1)
[2020-11-12 07:05] LABS: Albumin Globulin Ratio 0.6 (0.9-2); Bilirubin,Total 0.6 mg/dl (0.2-1); Globulin 4.9 gm/dl (2.5-4.0)
[2020-11-12 07:34] LABS: Folate (Folic Acid) 8.7 ng/ml (>5.38)
[2020-11-12] MEDS ORDERED: IRON SUCROSE 200 MG in 0.9 % SODIUM CHLORIDE 100 ML IV ONE (08:00)
[2020-11-12] MEDS: INSULIN ASPART 100 UNITS/ML 3 ML PEN SC SCH ×2 (08:06→12:02)
[2020-11-12] MEDS: guaiFENesin 200 MG TAB PO SCH (08:06)
[2020-11-12] MEDS ORDERED: SODIUM CHLORIDE 0.9% 250 ML IV PRN (08:36)
[2020-11-12] MEDS ORDERED: PANTOprazole 40 MG TAB PO SCH (09:00)
[2020-11-12] MEDS ORDERED: cephALEXin 500 MG CAP PO SCH (09:00)
--- NOTE | 2020-11-12 13:07 | Discharge Summary ---
Date of Service November 12, 2020 Admission HPI Per Admitting Provider 50yo female with h/o T2DM and anemia who presents after having had syncope at work today. Her history, however, goes back to Sunday of this week. At that time - while also at work - she felt dizzy and lightheaded. She did not have actual syncope. Went home Sunday evening from work and had vomiting/diarrhea. Sunday all symptoms were better. Saw her PCP on Sunday, had blood work showing anemia, and was told she needed blood transfusion. They were going to schedule it for Sunday at [facility]. She has had at least 3 transfusions in the past with last being about 1 year ago. Today while at her job in [place] she actually passed out. She was sitting in a chair, felt sweaty, lightheaded, and then proceeded to pass out. EMS was summoned and she was brought to [facility]. Upon presentation here her hemoglobin was noted to be 6. With respect to the anemia - * was told she was low on iron and took iron starting ~ 1 year ago * had colonoscopy and EGD ~5 years ago at [facility] (or [facility] - "they were normal" * no blood or melena in stool * craves ice "constantly" * no restless legs * no h/o b12 or folate deficiency * no family history of any form of anemia Principal Diagnosis Symptomatic anemia, Syncope UTI Discharge Exam Constitutional WD/WN, vitals as above Eyes + anicteric sclerae Neck trachea midline, no thyromegaly Respiratory normal respiratory effort, lungs clear to auscultation Cardiovascular RRR, no murmur, no edema Chest (Breasts) Chest: normal inspection of chest Gastrointestinal (Abdomen) normal bowel sounds, soft, nontender, no hepatosplenomegaly Musculoskeletal Extremities: extremities normal to inspection; no cyanosis and no clubbing Skin no rashes, warm and dry Neurologic moves all extremities and awake; no focal motor deficits Psychiatric A+Ox3, euthymic affect Lymphatic no lymphedema Discharge Data Allergies Allergy/AdvReac Type Severity Reaction Status Date / Time No Known Allergies Allergy Unverified 11/16/20 15:33 Consultations 11/11/20 14:17 ED Decision to Admit Stat Procedures Performed CXR ECHO Hospital Course (1) Syncope: Suspect neurocardiogenic syncope in the setting of severe iron deficiency anemia, suspected UTI, and ?GI illness on Sunday of this week. Echo wnl. EKG wnl. Telemetry with sinus rhythm Transfused 3 units PRBCs. Orthostatics performed prior to discharge and were normal Treat UTI. (2) Iron deficiency anemia: Severe. Ferritin 1. MCV 59. Hgb 6.0 on arrival Long-standing history of such. Records reviewed - patient had EGD at [facility] in 2014 showing mild gastritis only. She reports having had a colonoscopy at the same time but there is no record of such. Stool in the ER tonight is HEME NEGATIVE. Patient is luc-menopausal and for the last several years has had SEVERE menorrhagia/DUB. Her knife changer had advised hysterectomy because of this problem but patient declined. It is possible she has had long-standing Fe deficiency because of the severe, heavy menstrual cycles. Transfused 3 units PRBCs. Repeat hgb prior to discharge was up to 7.9 Venofer 200mg IV x 1 was given b12/folate were normal Given her age - despite the heme negative stool - would still advise an EGD with colonoscopy as an outpt-f/u with PCP -if vaginal bleeding recurs, should see [employer] -continue FeSO4 325mg po tid and repeat CBC in 1 week with PCP (3) GERD (gastroesophageal reflux disease): PPI as previous (4) Dysfunctional uterine bleeding: Present for several years. She has not had a menstrual cycle in 2-3 months, however, and may have finally reached menopause. Suspect that much of her severe Fe deficiency is from previous menorrhagia. If menopause has been reached this will certainly help her Fe deficiency. serum HCG here negative (5) UTI (urinary tract infection): Possible. s/p rocephin in ER. finish out 3 day course of keflex - follow urine culture-E. coli but sensitivities pending at time of dc-f/u with PCP (6) Nocturnal hypoxemia: NC O2 3 L. due to RAMONA? (7) Diabetes: Held oral agents. and Started novolog correction/carb coverage. resume oral agents at home (8) Myasthenia gravis: Controlled. Follows with [facility]. Continue chronic meds. (9) High globulin level: Total protein & globulin levels are elevated on admission but improved overnight LFTs normal f/u with PCP as outpt If these remain persistently high then consider SPEP/UPEP as outpt (10) Hypomagnesemia: Replaced and resolved Dispo-stable for dc to home Total Time Total Time Spent Total Time Spent (In Minutes): 35 min Total Time Includes: Examination of the Patient, Discharge Planning and Medication Reconciliation Discharge Plan Discharge Items Patient Disposition: Home - Self-Care Reason For Visit: SYNCOPE,SEVERE ANEMIA, UTI Discharge Diagnosis: Syncope, symptomatic anemia, UTI Condition on Discharge: Good Activity: As commented below Lifting: No more than 5 pounds Bathing: No limitations Exercise/Sports: Gradually increase as tolerated Driving/Machine Use: No driving until after seen by PCP and cleared Non-emergency contact: Primary Care Provider Call non-emergency contact if: you have any medication questions and your symptoms worsen Follow-up/Referrals: Sidney Whitlock [Primary Care Provider] - 11/18/20 11:00 am (You have an appt on November 18 at 1100am. Please arrive 15 minutes prior to your appt. It is important that your keep your appt. If for any reasont his appt does not fit your schedule please call [phone]. ) Diet: Carb Consistent or DM2 Addtl Attending Provider Instructions: Please follow up with your PCP within 1 week and have a blood count lab checked in 1 week to make sure your blood count is continuing to rise back up towards normal. You were given 3 unit of blood transfused, as well as 2 doses of IV iron during your hospital stay. You should continue to take iron tablets daily until your blood count is back to normal. Iron pills can make your stool turn dark in color and can also cause constipation. You should remain out of work for one week or until seen by your PCP and cleared to return. No driving also until feeling better to make sure you don't pass out while driving. You should also finish out 2 more days of an antibiotic for your UTI. This prescription for Keflex was called into your pharmacy. Pending Studies at Discharge: No Stand-Alone Forms: My [facility] [address], Work/School Release (Inpt), Smoking Cessation Medications and DC Order Prescriptions: New cephalexin 500 mg Capsule 500 mg PO BID Qty: 4 RF: 0 Continued DIAMINOPYRIDINE (BULK) (DIAMINOPYRIDINE) 1 POW POW 10 mg PO TID Qty: 0 RF: 0 metformin 500 mg tablet 500 mg PO BID RF: 0 prednisone 5 mg tablet 10 mg PO DIRECTED PRN (Reason: Unknown) RF: 0 omeprazole 40 mg Capsule,Delayed Release(Dr/Ec) 40 mg PO HS RF: 0 glimepiride 2 mg tablet 4 mg PO QAM RF: 0 ferrous sulfate 325 mg (65 mg iron) tablet 325 mg PO TID RF: 0 ephedrine-guaifenesin 12.5-200 mg Tablet 2 tab PO BID RF: 0 Discharge Orders: Discharge Order (Routine); Ordered 11/12/20 Ordered By: Domitila Hendricks Admission Data Admit Date/Time: 11/11/20 15:27 Attending Provider: Domitila Hendricks Admit Provider: Enrique Davis Primary Care Provider: Sidney Whitlock Other Interventions: Discharge Summary Assessment (RN) Last Done: 11/12/20 15:19 Coding Level of Care Code D/C Day Management >30 mins Diagnoses Syncope R55 Syncope type: unspecified Iron deficiency anemia D50.9 Iron deficiency anemia type: unspecified iron deficiency GERD (gastroesophageal reflux disease) K21.9 Esophagitis presence: without esophagitis Dysfunctional uterine bleeding N93.8 UTI (urinary tract infection) N30.00 Hematuria presence: without hematuria Urinary tract infection type: acute cystitis Nocturnal hypoxemia G47.34 Diabetes E11.9 Diabetes mellitus complication status: without complication Diabetes mellitus senior living insulin use: without terminal manager use Diabetes mellitus type: type 2 Myasthenia gravis G70.00 High globulin level R77.1 Hypomagnesemia E83.42
[2020-11-12 14:53] LABS: Hematocrit (blood only) 28.9 % (37-47); Hemoglobin 7.9 g/dL (12.0-16.0); Mean Corpuscular Hemoglobin 18.8 pg (25-34); Mean Corpuscular Hgb Conc 27.3 g/dL (32-36); Mean Corpuscular Volume 68.8 fL (80-100); Platelet Count 313 K/uL (130-400); RDW Coefficient of Variation 27.2 % (11.5-14.5); RDW Standard Deviation 67.2 fL (36.4-46.3); White Blood Count 9.94 K/uL (4.8-10.8)
== END 2020-11-12 16:36 | disposition home or self-care (01) | DRG 812 ==
LOC: ED 10:56 → SUATTDRO 15:27 → 2N 15:27